=== PATIENT | female | born 1940 | race Caucasian/White ===

== ENCOUNTER 2016-09-06 03:32 | Inpatient (IN) | payer OTHER, MEDICARE ==
[~2016-09-06] VITALS: Ht 167.6 cm; Wt 69.4 kg
[~2016-09-06 03:32] MED LIST: HYDROCHLOROTH12.5 M3 PO; SYSTANE 0.3-0.415 ML OPH; TRAMADOL HCL50 M1 PO
--- NOTE | 2016-09-06 11:22 | Admission Core Measures ---
Admission Meds I reviewed the following Meds: Current Medications Sig/Chayo Start time Last Medication Dose Stop Time Status Admin Acetaminophen 975 MG ONCE 09/06 AC (Tylenol) 09/06 2358 Artificial Tears 1 GTT AT BEDTIME 09/06 2199 AC (Tears Natural) Cefazolin Sodium 2,000 MG ONCE 09/06 NR (Kefzol-Ancef Inj) 09/06 2358 Hydrochlorothiazide 12.5 MG DAILY 09/06 1000 AC (Hydrodiuril) Oxycodone HCl 10 MG ONCE 09/06 AC (Roxicodone) 09/06 2358 Acute Coronary Syndrome Inclusion Criteria ACS Diagnosis No Inpatient Core Measures LDL Reminder: If No, please order W/I first 24hr of stay Congestive Heart Failure Inclusion Criteria CHF Diagnosis No Cerebrovascular accident Inclusion Criteria CVA/TIA Diagnosis No Inpatient Core Measures Bedside Swallow Eval Reminder: If BSE failed, place ST order Antithrombotic Reminder: Order Antithrombotic Medication by end of day 2 Antithrombotic Reminder: Document Reason Antithrombotic Not ordered by end of day 2 AFIB/Flutter Reminder: If Present, add to problem list AFIB/Flutter Reminder: Order Anticoag Medication for pts with AFIB/Flutter Atherosclerosis Reminder: If Present, add to problem list LDL Reminder: If No, please order W/I first 24hr of stay PT Order Reminder: If No, please order Venous thromboembolism Inpatient Core Measures VTE Risk Factors: Age > 40, Surgery No [facility] VTE prophylaxis d/t No contraindications No VTE Pharm Prophylaxis d/t No contraindications Inclusion Criteria - Per Current guidelines, there needs to be overlap - treatment for the first 5 days of Warfarin therapy. - Parenteral Anticoagulation (IV or SC) needs to be - given along with Warfarin therapy. VTE Diagnosis No VTE Type NONE VTE Confirmed by (Test) NONE Problem List As ranked by this Provider includes Assessment & Plan 1. Unilateral primary osteoarthritis, left hip HOME MEDS Home Med List Hydrochlorothiazide 12.5 MG CAPSULE 1 CAP PO DAILY HTN (Reported) Propylene Glycol/Peg 400 (Systane 0.3-0.4% Eye Drops) 0.3 %-0.4 % DROPS 1 GTT OPH NIGHTLY DRY EYE (Reported) Tramadol HCl 50 MG TABLET 1 TAB PO TIDPRN PAIN (Reported)
--- NOTE | 2016-09-06 12:07 | RADIOLOGY REPORT ---
EXAMINATION: XR HIP, LEFT CLINICAL INFORMATION: Status post left total hip replacement. COMPARISON: None TECHNIQUE: Two views of the left hip. FINDINGS: There has been a total left hip replacement. There is no evidence of hardware complication. Alignment is anatomic. No evidence of periprosthetic fracture. No dislocation. There is air in the regional soft tissues compatible with immediately postoperative state. Degenerative changes of the left SI joint are partially visualized. IMPRESSION: Status post left total hip replacement. No evidence of hardware complication or periprosthetic fracture.
[2016-09-06] MEDS ORDERED: ASPIRIN EC325 M2 PO (12:56)
[2016-09-06] MEDS ORDERED: DILAUDID2 M1 PO (12:56)
[2016-09-06] MEDS ORDERED: MIRALAX17 G1 PO (12:56)
[2016-09-06] MEDS ORDERED: MS CONTIN15 M2 PO (12:56)
[2016-09-06] MEDS ORDERED: COLACE100 M1 PO (12:56)
--- NOTE | 2016-09-06 13:08 | Patient Discharge Instructions ---
Discharge Instructions General Discharge Information You were seen/treated for: Left hip pain related to unilateral primary osteoarthritis You had these procedures: Left total hip replacement Watch for these problems: Increasing pain despite the use of pain medication Increasing redness, warmth or swelling Drainage of any type from incision Inability to bear weight on operative leg Persistent nausea and vomiting Fever greater than 101.5 degrees Do not soak the wound: Yes No bath, but you may shower: Yes Other wound care: Please keep wound clean and dry. No ointments or lotions of any type on or near incision at any time. No exceptions. Your dressing will be changed by your nurse on the second day after your surgery. Daily dry dressing changes are recommended each day thereafter. Do not soak your wound in a bath at any time until otherwise indicated by your surgeon. You may shower, please dry wound immediately after shower with a clean towel. Special Instructions: Aspirin: You are taking this medication to help prevent blood clot formation. Please take with food to protect your stomach lining. Please take as directed. Constipation: Pain medication can cause constipation. Dr. Alcaraz has recommended that you take Colace and miralax each day. You may discontinue this medication if you develop loose stool or diarrhea. If you wish to continue this medication, it is available over the counter. If you are unable to move your bowels after several days, if you are unable to pass gas and are developing bloating, nausea, or vomiting as a result, please contact your doctor. Diet Continue normal diet: Yes Recommended Diet: Regular Activity Full Activity/No Limits: No Activity Self Limited: Yes Pounds, do NOT lift more than: 10 Acute Coronary Syndrome Inclusion Criteria At DC or during hospital stay patient has or had the following: ACS DIAGNOSIS No Discharge Core Measures Meds if any: Prescribed or Continued at Discharge Meds if any: NOT Prescribed or Continued at Discharge Congestive Heart Failure Inclusion Criteria At DC or during hospital stay patient has or had the following: CHF DIAGNOSIS No Discharge Core Measures Meds if any: Prescribed or Continued at Discharge Meds if any: NOT Prescribed or Continued at Discharge Cerebrovascular accident Inclusion Criteria At DC or during hospital stay patient has or had the following: CVA/TIA Diagnosis No Discharge Core Measures Meds if any: Prescribed or Continued at Discharge Meds if any: NOT Prescribed or Continued at Discharge Venous thromboembolism Inclusion Criteria VTE Diagnosis No VTE Type NONE VTE Confirmed by (Test) NONE Discharge Core Measures - Per Current guidelines, there needs to be overlap - treatment for the first 5 days of Warfarin therapy. - If discharged on Warfarin prior to 5 days of - overlap therapy, the patient will need to be - assessed for post discharge needs including - *Post discharge parental anticoagulation - *Warfarin and/or parental anticoagulation education - *Follow up date to check INR post discharge At least 5 days overlap therapy as Inpatient No Meds if any: Prescribed or Continued at Discharge Note: Overlap Therapy is Warfarin and Anticoagulant Meds if any: NOT Prescribed or Continued at Discharge
--- NOTE | 2016-09-06 13:11 | Surgical Discharge Summary ---
Visit Information Visit Dates Admission Date: 09/06/16 Discharge Date: 09/06/16 History of Present Illness Chief Complaint: Left hip pain related to unilateral primary osteoarthritis Medical History Isolation History: Standard Surgical History Pertinent Surgical History: non-contributory Review of Systems: See H&P Hospital Course Course Attending Physician: AUDELIA REYNOSO MD Primary Care Physician: TAMIKA MARIN MD Hospital Course: Patient was admitted to the hospital for an elective total joint replacement. The procedure was tolerated well and patient was transferred to a general surgical floor. Diet was advanced and tolerated, and the patient voided spontaneously. The patient was evaluated and treated by physical therapy. At the time of hospital discharge, the vital signs were stable, neurovascular status was intact, and pain was controlled with the use of oral pain medications. Allergies: Coded Allergies: No Known Allergies (08/25/16) Disposition Summary Disposition Principal Diagnosis: Left hip unilateral primary osteoarthritis Additional Diagnosis: None Discharge Disposition: home health services Discharge Instructions General Discharge Information Code Status: Full Code Patient's Diet: Regular, advance as tolerated Patient's Activity: WBAT Follow-Up Instructions/Appts: Follow up with Dr. Reynoso in 6 weeks from date of surgery. Please call his office to arrange and/or confirm this appointment. Medications at Discharge Discharge Medications: Stop taking the following medications: Tramadol HCl (Tramadol HCl) 50 MG TABLET ORAL THREE TIMES A DAY NEEDED Continue taking these medications: Hydrochlorothiazide (Hydrochlorothiazide) 12.5 MG CAPSULE 1 Capsule ORAL DAILY Propylene Glycol/Peg 400 (Systane 0.3-0.4% Eye Drops) 0.3 %-0.4 % DROPS 1 Drop In the eye NIGHTLY Start taking the following new medications: Aspirin (Ecotrin*) 325 MG TABLET.DR 1 Tablet ORAL TWICE DAILY Qty = 60 No Refills Docusate Sodium (Colace) 100 MG CAPSULE 1 Capsule ORAL TWICE DAILY Qty = 14 No Refills Instructions: DISCONTINUE USE IF YOU DEVELOP LOOSE STOOL OR DIARRHEA Hydromorphone HCl (Dilaudid) 2 MG TABLET 1-2 Tablet ORAL EVERY 4-6 HOURS NEEDED as needed for PAIN Qty = 36 No Refills Morphine Sulfate (Ms Contin) 15 MG TABLET.ER 1 Tablet ORAL TWICE DAILY Qty = 6 No Refills Polyethylene Glycol 3350 (Miralax) 17 GRAM POWD.PACK 1 Packet ORAL DAILY Qty = 7 No Refills Instructions: dissolve in water, DISCONTINUE USE IF YOU DEVELOP LOOSE STOOL OR DIARRHEA
[2016-09-06 14:00] VITALS: BP 118/74
--- NOTE | 2016-09-06 14:43 | NUR ---
14:00-- PT ARRIVED TO FLOOR VIA STRETCHER FROM PACU. REPORT RECEIVED FROM RONALD/THRESHING DEPARTMENT SUPERVISOR. PT A/V/OX3. AMBULTATED FROM STRETCHER TO FLOOR AX1 WITH RW W/ PHYSICAL THERAPY. VSS. DRESSING TO L HIP C,D,I. + PULSES AND CMS TO LLE. NO AGUILERA IN OR. HX R MASTECTOMY: RUE RESTRICTION. ORIENTED TO ROOM AND CALL LIGHT FOR ASSIST.
--- NOTE | 2016-09-06 15:01 | PN- Orthopedic ---
Subjective Subjective: POST-OP NOTE: No complaints. Expected discomfort of her left hip incision. Out of bed to chair. No dizziness. No shortness of breath. No chest pains. Expecting to walk soon with PT. She tolerated lunch. No nausea. Due to void this afternoon. Objective Vital Signs and I&Os Vital Signs Date Time Temp Pulse Resp B/P B/P Pulse O2 O2 Flow FiO2 Mean Ox Delivery Rate 09/06 1400 97.7 68 18 118/74 95 Room Air Intake & Output 09/06 1600 09/06 0800 09/06 0000 09/05 1600 09/05 0800 09/05 0000 Intake Total Output Total Balance Patient 153 lb Weight Physical Exam: General - alert & oriented x 3. out of bed to chair. no acute distress. Lungs - clear bilaterally. no w/r/r. Cardiac - s1s2. reg. Abdomen - soft. nontender. Extremities - warm bilaterally. left hip dressing c/d/i. no drains. no hematoma. calves soft and nontender b/l. nvi. Current Medications: Current Medications Sig/Chayo Start time Last Medication Dose Route Stop Time Status Admin Acetaminophen 1,000 MG Q6P PRN 09/06 1415 AC IV 09/07 1401 Acetaminophen 650 MG Q4P PRN 09/06 1415 AC PO Acetaminophen 0 .STK-MED ONE 09/06 0914 DC PO Acetaminophen 975 MG ONCE 09/06 0000 DC PO 09/06 2359 Artificial Tears 1 GTT AT BEDTIME 09/06 2199 DC OU Artificial Tears 1 GTT AT BEDTIME 09/06 2199 AC OU Aspirin 325 MG BID 09/06 220 AC PO Cefazolin Sodium 2 GM IQ8 09/06 1600 AC N/A 1 UNIT IV 09/07 0029 Cefazolin Sodium 2,000 MG ONCE 09/06 0000 DC IV 09/06 2359 Dextrose/Sodium 1,000 ML .[id number] 09/06 1415 AC 09/06 Chloride IV 1410 Docusate Sodium 100 MG BID 09/06 2200 AC PO Hydrochlorothiazide 12.5 MG DAILY 09/07 1000 AC PO Hydrochlorothiazide 12.5 MG DAILY 09/06 1000 DC PO Hydromorphone HCl 2 MG Q4P PRN 09/06 1415 AC PO Hydromorphone HCl 4 MG Q4P PRN 09/06 1415 AC PO Ketorolac 15 MG Q6P PRN 09/06 1415 AC Tromethamine IV 09/09 1401 Morphine Sulfate 2 MG Q2P PRN 09/06 1415 AC IV Omeprazole 40 MG DAILY AC 09/07 0700 AC PO Ondansetron HCl 4 MG Q6P PRN 09/06 1415 AC IV Oxycodone HCl 0 .STK-MED ONE 09/06 0914 DC PO Oxycodone HCl 10 MG ONCE 09/06 0000 DC PO 09/06 2359 Polyethylene Glycol 17 GM DAILY 09/07 1000 AC PO Promethazine HCl 12.5 MG Q6P PRN 09/06 1415 AC IV 09/13 1114 Assessment/Plan Assessment/Plan This 76 year old white female with hx htn and dry eye, is POD#0 s/p left total hip replacement for unilateral primary osteoarthritis pain controlled tolerating diet asa bid - dvt ppx ancef x 2 doses jose miguel-operatively awaiting PT eval home meds ordered due to void this afternoon likely d/c home with services this afternoon if meets above criteria will d/w Core Measures/Miscellaneous Venous Thromboembolism VTE Risk Factors: Age > 40, Surgery VTE Contraindications: No Contraindications VTE Diagnosis: No VTE Type: NONE VTE Confirmed by (Test): NONE Beta Brodie Is Beta Brodie a Home Med? No Antibiotics Is Patient on Antibiotics? Yes If Yes: prophylaxis
--- NOTE | 2016-09-06 15:34 | NUR ---
1515- COMPRESSION STOCKINGS IN PLACE. PT INSTRUCTED ON INCENTIVE SPIROMETRY USE WITH RETURN DEMONSTRATION.
[2016-09-06 16:40] VITALS: BP 122/78
--- NOTE | 2016-09-06 19:00 | Operative Report ---
Operative/Inv Procedure Report Surgery Date: 09/06/16 Name of Procedure: Left total hip replacement Pre-Operative Diagnosis: Primary left hip DJD Post-Operative Diagnosis: Same Estimated Blood Loss: 250 Surgeon/Digital Asset Coordinator: ANGELES NARANJO,AUDELIA Ortega Anesthesia: block Operative/Procedure Note Note: Description of Procedure: The patient was taken to the operating room and positively identified. After induction of spinal anesthesia and administration of appropriate pre-operative antibiotics, the patient was positioned supine on the operating room table and all bony prominences were well padded. After performing a surgical timeout, the left lower extremity was prepped and draped in the usual sterile fashion. A direct anterior approach was made to the left hip. The incision was carried sharply through superficial soft tissues to the level of the fascia. Meticulous hemostasis was maintained with Bovie electocautery. The fascia over the tensor fascia aramis muscle was opened sharply and the interval between the TFL and the sartorius was entered bluntly taking care to stay lateral to the lateral femoral cutaneous nerve. Retractors were placed around the femoral neck and the pericapsular fat was identified. The ascending branches of the lateral femoral circumflex vessels were identified and carefully coagulated. The pericapsular fat and anterior capsule were then resected. A napkin ring osteotomy was performed and the femoral head was removed without difficulty. Attention was then turned to the acetabulum. After appropriate placement of retractors, the acetabulum was exposed. Soft tissue was cleaned from the acetabular margin and notch. Overhanging osteophytes were removed and the teardrop was exposed. The acetabulum was then sequentially reamed to accept a 52 mm Pelsor Tritanium hemispherical solid back shell. This was impacted into place in the appropriate position and fitted with a 32 mm Trident X3 zero degree polyethylene insert. Attention was then turned to the femur. After performing the appropriate ligament releases, the proximal femur was exposed. It was then sequentially broached to accept a size #4 Pelsor accolade 2 stem. This was trialed for leg length and stability. The trial component was removed and the final component was impacted into place. The trunnion was carefully cleaned and fit with a 32 mm, +4 Biolox delta ceramic femoral head. The hip was reduced and put through a full range of motion and found to be stable. The articular space was then irrigated with sterile saline. The periarticular soft tissues were infilitrated with Marcaine. The fascial layer was closed with interrupted #1 vicryl suture and the skin was re-approximated with interrupted 2 -0 vicryl. The skin was closed with a running 3-0 V-Lock suture. Steri-strips and a sterile dressing were applied. The patient was awakened and taken to the recovery room in satisfactory condition.
--- NOTE | 2016-09-07 00:52 | NUR ---
1735 ALERT AND ORIENTED X 3. ON ROOM AIR. DENIES SHORTNESS OF BREATH VITAL SIGNS STABLE. DENIES CHEST PAIN. + PULSES. DENIES NUMBNESS/TINGLING DSG TO L HIP IS C/D/I. PATIENT VOIDED. STEADY GAIT. MEDICATION GIVEN FOR DISCOMFORT. IV REMOVED. VERBALIZED UNDERSTANDING OF DISCHARGE INSTRUCTIONS
== END 2016-09-06 17:35 | disposition home health service (06) | DRG 470 ==
LOC: SDA 03:32 → ENRESERV 12:51 → ENTRNSPT 13:38 → EDTRNSPT 13:44 → EDTRNSPTSTS 13:44 → 2NB 13:55 → CMPTRNSPT 13:55 → 2NB 17:35
PROVIDERS: ADMIT Orthopaedic Surgery
PROC: 0SRB0JZ Replacement of Left Hip Joint with Synthetic Substitute, Open Approach (ICD-10-PCS; principal; 2016-09-06)
DX: M16.12 Unilateral primary osteoarthritis, left hip (principal); I10 Essential (primary) hypertension; E78.5 Hyperlipidemia, unspecified
CPT/HCPCS: 2NBP; 73502-LT; 97116-GO; 97161-GP; 97530-GO; J0131; J0690; J0735; J2405; J2550; J7042